=== PATIENT | female | born 1950 | race Caucasian/White ===

== ENCOUNTER 2016-10-10 10:20 | Emergency (ER) | payer OTHER ==
[~2016-10-10] VITALS: Ht 152.4 cm; Wt 86.1 kg
[2016-10-10 11:22] LABS: HEMATOCRIT 37.5 % (36.0-46.0); MCH 28.5 PG (29.0-34.0); MCHC 31.7 G/DL (30.0-36.0); MCV 89.9 FL (83-99); MEAN PLAT.VOLUME 9.9 uM^3 (9.5-12.4); PLATELET COUNT 260 K/uL (156-360); RBC DIS.WIDTH-CV 14.6 % (11.8-14.6); RBC DIS.WIDTH-SD 46.3 % (39-53); RED BLOOD COUNT 4.17 M/uL (3.80-5.20); WHITE BLOOD COUNT 12.8 K/uL (4.1-10.2)
[2016-10-10 11:32] LABS: CHLORIDE 106 mEq/L (99-109); POTASSIUM 4.1 mEq/L (3.7-5.4); SODIUM 140 mEq/L (136-147)
[2016-10-10 11:34] LABS: GLUCOSE 129 mg/dL (70-99)
[2016-10-10 11:35] LABS: ANION GAP 10 MEQ/L (2-14)
[2016-10-10 11:38] LABS: GFR ESTIMATE (CALCULATED) 43 mL/min/
[2016-10-10 11:39] LABS: UREA NITROGEN (BUN) 29 mg/dL (9-23)
[2016-10-10 11:42] LABS: TROP-I INTERPRETATION NEGATIVE; TROPONIN-I 0.02 ng/mL (0.0-0.30)
[2016-10-10 12:26] LABS: ADD MIUA? NO; BILIRUBIN NEGATIVE; BLOOD NEGATIVE; COLOR YELLOW ((YELLOW)); GLUCOSE (STRIP) NEGATIVE; KETONES NEGATIVE; LEUKOCYTES NEGATIVE; NITRITE NEGATIVE; PROTEIN (STRIP) TRACE; SPECIFIC GRAVITY 1.019 (1.000-1.030); UCUL ADDED? NO; UROBILINOGEN 0.2 MG/DL (0.2-1.0)
[2016-10-10 14:35] VITALS: BP 132/59
== END 2016-10-10 14:36 | disposition home or self-care (01) ==
LOC: EME 10:20
PROVIDERS: Emergency Medicine
DX: R53.1 Weakness (principal); T14.90 Injury, unspecified; W19.XXXA Unspecified fall, initial encounter; I10 Essential (primary) hypertension; E78.5 Hyperlipidemia, unspecified; J43.9 Emphysema, unspecified; J44.9 Chronic obstructive pulmonary disease, unspecified; E11.9 Type 2 diabetes mellitus without complications; F17.200 Nicotine dependence, unspecified, uncomplicated; Z88.0 Allergy status to penicillin; Z88.2 Allergy status to sulfonamides
CPT/HCPCS: 71010; 80048; 81003; 84484; 85027; 93005; 99281; 99284; G8978 GP CI; G8979 GP CH; G8987 GO CI; G8988 GO CH; G8989 GO CH; J7030

== ENCOUNTER 2016-10-17 12:49 | Emergency (ER) | payer OTHER ==
[~2016-10-17] VITALS: Ht 152.4 cm; Wt 91.0 kg
[2016-10-17 13:42] LABS: ADD MIUA? NO; BILIRUBIN NEGATIVE; BLOOD NEGATIVE; COLOR YELLOW ((YELLOW)); GLUCOSE (STRIP) NEGATIVE; KETONES NEGATIVE; LEUKOCYTES NEGATIVE; NITRITE NEGATIVE; PH, URINE 7.5 (5-8); PROTEIN (STRIP) TRACE; SPECIFIC GRAVITY 1.015 (1.000-1.030); UCUL ADDED? NO; UROBILINOGEN 0.2 MG/DL (0.2-1.0)
[2016-10-17 14:18] LABS: EOSINOPHIL (%) 0 % (0-5); HEMATOCRIT 39.8 % (36.0-46.0); IMMATURE GRANULOCYTE (%) 0.2 % (0.0-0.7); IMMATURE GRANULOCYTE COUNT 0.2 K/uL; LYMPHOCYTE COUNT 1.4 K/uL (1.0-2.8); MCH 28.5 PG (29.0-34.0); MCHC 31.4 G/DL (30.0-36.0); MCV 90.7 FL (83-99); MEAN PLAT.VOLUME 9.5 uM^3 (9.5-12.4); MONOCYTE COUNT 0.5 K/uL (0-0.8); NEUTROPHIL (%) 80.2 % (45-76); NEUTROPHIL COUNT 8.1 K/uL (1.8-6.4); PLATELET COUNT 261 K/uL (156-360); RBC DIS.WIDTH-CV 14.9 % (11.8-14.6); RBC DIS.WIDTH-SD 48.6 % (39-53); RED BLOOD COUNT 4.39 M/uL (3.80-5.20); WHITE BLOOD COUNT 10.2 K/uL (4.1-10.2)
[2016-10-17 14:26] LABS: CHLORIDE 103 mEq/L (99-109); POTASSIUM 4.2 mEq/L (3.7-5.4); SODIUM 140 mEq/L (136-147)
[2016-10-17 14:28] LABS: GLUCOSE 98 mg/dL (70-99)
[2016-10-17 14:29] LABS: ANION GAP 13 MEQ/L (2-14)
[2016-10-17 14:32] LABS: GFR ESTIMATE (CALCULATED) 43 mL/min/
[2016-10-17 14:33] LABS: UREA NITROGEN (BUN) 23 mg/dL (9-23)
[2016-10-17 14:38] LABS: TROP-I INTERPRETATION NEGATIVE; TROPONIN-I < 0.01 ng/mL (0.0-0.30)
[2016-10-17 15:52] VITALS: BP 147/76
== END 2016-10-17 15:55 | disposition home or self-care (01) ==
LOC: EME 12:49
PROVIDERS: Emergency Medicine
DX: F03.90 Unspecified dementia, unspecified severity, without behavioral disturbance, psychotic disturbance, mood disturbance, and anxiety (principal); R29.6 Repeated falls; F17.200 Nicotine dependence, unspecified, uncomplicated
CPT/HCPCS: 70450; 71010; 80048; 81003; 84484; 85025; 99281; 99285

== ENCOUNTER 2017-07-25 08:34 | Inpatient (IN) | payer OTHER ==
[~2017-07-25] VITALS: Ht 152.4 cm; Wt 98.2 kg
[2017-07-25 09:27] LABS: EOSINOPHIL (%) 0 % (0-5); HEMATOCRIT 39.6 % (36.0-46.0); IMMATURE GRANULOCYTE (%) 0.6 % (0.0-0.7); INSTRUMENT ABS NEUTROPHIL CT 5.9 K/uL; LYMPHOCYTE COUNT 0.9 K/uL (1.0-2.8); MCH 29.4 PG (29.0-34.0); MCHC 31.6 G/DL (30.0-36.0); MCV 93.2 FL (83-99); MEAN PLAT.VOLUME 9.7 uM^3 (9.5-12.4); MONOCYTE (%) 4.8 % (3-12); MONOCYTE COUNT 0.4 K/uL (0-0.8); NEUTROPHIL (%) 81.5 % (45-76); NEUTROPHIL COUNT 5.9 K/uL (1.8-6.4); PLATELET COUNT 209 K/uL (156-360); RBC DIS.WIDTH-CV 13.7 % (11.8-14.6); RBC DIS.WIDTH-SD 47.2 % (39-53); RED BLOOD COUNT 4.25 M/uL (3.80-5.20); WHITE BLOOD COUNT 7.2 K/uL (4.1-10.2)
[2017-07-25 09:34] LABS: PROTHROMBIN TIME 11.8 SEC (10.2-12.9)
[2017-07-25 09:35] LABS: CHLORIDE 105 mEq/L (99-109); POTASSIUM 4.7 mEq/L (3.7-5.4); SODIUM 140 mEq/L (136-147)
[2017-07-25 09:37] LABS: GLUCOSE 119 mg/dL (70-99); PTT 34.7 SEC (25-37)
[2017-07-25 09:39] LABS: ANION GAP 8 MEQ/L (2-14)
[2017-07-25 09:41] LABS: GFR ESTIMATE (CALCULATED) 47 mL/min/
[2017-07-25 09:42] LABS: UREA NITROGEN (BUN) 17 mg/dL (9-23)
[2017-07-25 09:49] LABS: TROP-I INTERPRETATION NEGATIVE; TROPONIN-I < 0.01 ng/mL (0.0-0.30)
[2017-07-25] MEDS ORDERED: OMEPRAZOLE40 M1 PO (11:51)
[2017-07-25] MEDS ORDERED: LAMOTRIGINE150 MG PO (11:51)
[2017-07-25] MEDS ORDERED: ADVAIR 500/501 DISK IH (11:52)
[2017-07-25] MEDS ORDERED: AMLODIPINE BES2.5 MG PO (11:52)
[2017-07-25] MEDS ORDERED: METFORMIN HCL500 M1 PO (11:52)
[2017-07-25] MEDS ORDERED: TRAMADOL HCL50 MG PO (11:53)
[2017-07-25] MEDS ORDERED: KETOCONAZOLE60 GM TP (11:53)
[2017-07-25] MEDS ORDERED: MOBIC7.5 MG PO (11:54)
[2017-07-25] MEDS ORDERED: DESYREL100 MG PO (11:56)
[2017-07-25] MEDS ORDERED: SPIRIVA1 INHALATI IH (11:56)
[2017-07-25] MEDS ORDERED: SIMVASTATIN20 MG PO (11:56)
[2017-07-25] MEDS ORDERED: MONTELUKAST SOD10 MG PO (11:56)
[2017-07-25] MEDS ORDERED: PROAIR HFA8.5 GM IH (11:57)
[2017-07-25] MEDS ORDERED: ENDOCET 5-3251 EACH PO (11:58)
[2017-07-25] MEDS ORDERED: AMMONIUM LACTA140 GM TP (11:58)
[2017-07-25 15:11] VITALS: BP 127/62
[2017-07-25 18:01] LABS: POINT-OF-CARE METER ID UU14314084
[2017-07-25 19:00] VITALS: BP 143/68
[2017-07-25 21:47] LABS: POINT-OF-CARE METER ID UU14314084
[2017-07-25 22:50] VITALS: BP 160/70
[2017-07-26 03:05] VITALS: BP 156/76
[2017-07-26 06:47] LABS: POINT-OF-CARE METER ID UU14208750
[2017-07-26 07:07] LABS: ANION GAP 7 MEQ/L (2-14); CHLORIDE 104 MEQ/L (99-109); GFR ESTIMATE (CALCULATED) 58 mL/min/; POTASSIUM 4.2 MEQ/L (3.7-5.4); SAMPLE HEMOLYSIS CHECK 0; SAMPLE ICTERIC CHECK 0; SAMPLE LIPEMIA CHECK 0; SODIUM 141 MEQ/L (136-147); UREA NITROGEN (BUN) 19 mg/dL (9-23)
[2017-07-26 07:10] LABS: GLUCOSE 186 mg/dL (70-99)
[2017-07-26 07:12] VITALS: BP 156/76
[2017-07-26 12:10] VITALS: BP 114/56
[2017-07-26 12:14] LABS: POINT-OF-CARE METER ID UU14314084; POINT-OF-CARE USER ID STWLMB34
[2017-07-26 16:30] VITALS: BP 145/64
[2017-07-26 16:47] LABS: POINT-OF-CARE METER ID UU14208750
[2017-07-26 19:50] VITALS: BP 152/79
[2017-07-26 21:29] LABS: POINT-OF-CARE METER ID UU14208750
[2017-07-27 00:31] VITALS: BP 159/75
[2017-07-27 04:28] VITALS: BP 155/74
[2017-07-27 07:26] LABS: EOSINOPHIL (%) 0 % (0-5); HEMATOCRIT 39.5 % (36.0-46.0); IMMATURE GRANULOCYTE (%) 0.7 % (0.0-0.7); IMMATURE GRANULOCYTE COUNT 0.1 K/uL; INSTRUMENT ABS NEUTROPHIL CT 12.6 K/uL; LYMPHOCYTE COUNT 0.5 K/uL (1.0-2.8); MCH 29.9 PG (29.0-34.0); MCHC 31.9 G/DL (30.0-36.0); MCV 93.6 FL (83-99); MEAN PLAT.VOLUME 10.1 uM^3 (9.5-12.4); MONOCYTE (%) 2.2 % (3-12); MONOCYTE COUNT 0.3 K/uL (0-0.8); NEUTROPHIL (%) 93.4 % (45-76); NEUTROPHIL COUNT 12.6 K/uL (1.8-6.4); PLATELET COUNT 234 K/uL (156-360); RBC DIS.WIDTH-CV 13.5 % (11.8-14.6); RBC DIS.WIDTH-SD 46.2 % (39-53); RED BLOOD COUNT 4.22 M/uL (3.80-5.20); WHITE BLOOD COUNT 13.5 K/uL (4.1-10.2)
[2017-07-27 07:55] VITALS: BP 169/72
[2017-07-27 07:56] LABS: ANION GAP 9 MEQ/L (2-14); CHLORIDE 103 MEQ/L (99-109); GFR ESTIMATE (CALCULATED) 58 mL/min/; GLUCOSE 160 mg/dL (70-99); POTASSIUM 4.6 MEQ/L (3.7-5.4); SAMPLE HEMOLYSIS CHECK 0; SAMPLE ICTERIC CHECK 0; SAMPLE LIPEMIA CHECK 0; SODIUM 140 MEQ/L (136-147); UREA NITROGEN (BUN) 29 mg/dL (9-23)
[2017-07-27 08:10] LABS: POINT-OF-CARE METER ID UU14208750
[2017-07-27 11:02] VITALS: BP 142/64
[2017-07-27 11:14] LABS: POINT-OF-CARE METER ID UU14314084
[2017-07-27] MEDS ORDERED: CEFTIN500 MG PO (14:51)
[2017-07-27] MEDS ORDERED: NICOTINE PATCH1 EAC2 TD (14:51)
[2017-07-27] MEDS ORDERED: PREDNISONE20 MG PO (14:52)
[2017-07-27 15:22] VITALS: BP 168/73
[2017-07-27 15:34] LABS: POINT-OF-CARE METER ID UU14314084
== END 2017-07-27 15:56 | disposition home health service (06) | DRG 190 ==
LOC: EME 08:34 → EDOF 11:11 → ENRESERV 11:11 → EDOF 11:11 → CANRESERV 11:11 → 2EAST 12:20 → EDOF 12:20 → CANRESERV 12:22 → ENRESERV 12:22 → 2EAST 15:36
PROVIDERS: Emergency Medicine; Internal Medicine
DX: J44.1 Chronic obstructive pulmonary disease with (acute) exacerbation (principal); J96.21 Acute and chronic respiratory failure with hypoxia; J44.0 Chronic obstructive pulmonary disease with (acute) lower respiratory infection; J20.9 Acute bronchitis, unspecified; N13.1 Hydronephrosis with ureteral stricture, not elsewhere classified; E11.9 Type 2 diabetes mellitus without complications; I10 Essential (primary) hypertension; E78.5 Hyperlipidemia, unspecified; F32.9 Major depressive disorder, single episode, unspecified; K21.9 Gastro-esophageal reflux disease without esophagitis; F17.210 Nicotine dependence, cigarettes, uncomplicated; Z88.2 Allergy status to sulfonamides; Z88.0 Allergy status to penicillin; Z99.81 Dependence on supplemental oxygen
CPT/HCPCS: 71010; 71250; 74176; 80048; 82550 91; 82948; 83880; 84484; 85025; 85610; 85730; 87040; 87070; 87077; 87186; 87205; 93005; 94010; 94640; 94640 76; 94760; 94799; 99202; 99281; 99285; J0696; J1650; J1815; J2930; J7030; J7050

== ENCOUNTER → 2018-03-18 | Outpatient (CLI) | payer OTHER ==
[~2018-03-18] MED LIST: ADVAIR 500/501 DISK IH; AMLODIPINE BES2.5 MG PO; AMMONIUM LACTA140 GM TP; CEFTIN500 MG PO; DESYREL100 MG PO; ENDOCET 5-3251 EACH PO; KETOCONAZOLE60 GM TP; LAMOTRIGINE150 MG PO; METFORMIN HCL500 M1 PO; MOBIC7.5 MG PO; MONTELUKAST SOD10 MG PO; NICOTINE PATCH1 EAC2 TD; OMEPRAZOLE40 M1 PO; PREDNISONE20 MG PO; PROAIR HFA8.5 GM IH; SIMVASTATIN20 MG PO; SPIRIVA1 INHALATI IH; TRAMADOL HCL50 MG PO
== END | disposition home or self-care (01) ==
LOC: NUC 10:31
DX: N13.30 Unspecified hydronephrosis (principal)
CPT/HCPCS: 78709; A9562; J1940